=== PATIENT | male | born 1995 | race Caucasian/White ===

== ENCOUNTER 2022-01-26 19:08 | Emergency (ER) | payer OTHER ==
[~2022-01-26] VITALS: Ht 180.3 cm; Wt 68.0 kg
--- NOTE | 2022-01-26 20:35 | NUR ---
DR. POWELL AT BEDSIDE MSE IN PROGRESS.
--- NOTE | 2022-01-26 21:05 | NUR ---
LAB AT BEDSIDE.
[2022-01-26 21:07] LABS: *BLOOD, URINE NEGATIVE (NEGATIVE); *CLARITY,URINE CLEAR (CLEAR); *COLOR,URINE YELLOW (YELLOW); *KETONES,URINE 3+ (NEGATIVE); *UROBILINOGEN,URINE 0.2 E.U./dl (NORMAL); LEUKOCYTE ESTERASE ,URINE NEGATIVE (NEGATIVE); NITRITE, URINE NEGATIVE (NEGATIVE); PH,URINE 5.5 (5.0-8.0); UGLUCOSE NEGATIVE (NEGATIVE)
[2022-01-26 21:10] LABS: *BILIRUBIN,URIN 1+ (NEGATIVE)
[2022-01-26 21:18] LABS: *AMPHETAMINE, URINE NEGATIVE (NEGATIVE); *CANNABINOID, URINE POSITIVE (NEGATIVE); *COCCAINE, URINE NEGATIVE (NEGATIVE); *OPIATE, URINE NEGATIVE (NEGATIVE); *PHENCYCLIDINE SCREEN,URINE NEGATIVE (NEGATIVE)
[2022-01-26 21:31] LABS: HEMATOCRIT 44.2 % (36.7-47.1); MEAN CORPUSCULAR HEMOGLOBIN 24.2 uug (23.8-33.4); MEAN CORPUSCULAR VOLUME 72.8 fL (73.0-96.2); PLATELET COUNT (AUTO) 374 K/uL (152-348)
[2022-01-26 21:42] LABS: CARBON DIOXIDE 24 mmol/L (21-32); CHLORIDE 98 mmol/L (98-107); CREATININE 0.9 mg/dL (0.6-1.3); GLUCOSE 67 mg/dL (74-106); POTASSIUM 4.3 mmol/L (3.5-5.1); UREA NITROGEN, BLOOD 14 mg/dL (7-18)
[2022-01-26 21:44] LABS: ETHANOL < 3 MG/DL (0-0)
[2022-01-26 21:48] LABS: ALANINE AMINOTRANSFERASE 37 U/L (16-63); ALKALINE PHOSPHATASE 76 U/L (50-136); ASPARTATE AMINOTRANSFERASE 25 U/L (15-37); BILIRUBIN,DIRECT 0.2 mg/dL (0.0-0.2); CREATINE KINASE, TOTAL 530 U/L (39-308); TOTAL PROTEIN, SERUM 8.3 g/dL (6.4-8.2)
[2022-01-26 21:50] LABS: ACETAMINOPHEN < 2.0 ug/mL (10-30)
[2022-01-26 21:55] LABS: THYROID STIMULATING HORMONE 0.456 mIU/mL (0.358-3.740)
[2022-01-26 22:08] LABS: *OCCULT BLOOD STOOL NEGATIVE (NEGATIVE)
[2022-01-26 22:15] LABS: NEUTROPHILS % (MANUAL) 0 % (42-75)
[2022-01-26 22:34] LABS: BACTERIA,URINE FEW /HPF (NONE SEEN); RBC,URINE 0-3 /HPF (0-3); SQUAMOUS EPITHELIAL CELL,UR NONE SEEN /HPF (NONE SEEN); TRICHOMONAS,URINE NONE SEEN /HPF (NONE SEEN); WBC,URINE 0-3 /HPF (0-3); YEAST,URINE NONE SEEN /HPF (NONE SEEN)
--- NOTE | 2022-01-27 | NUR ---
Patient given written and verbal discharge instructions. Patient verbalizes understanding of instructions. Patient is ambulatory with steady gait. Refuses offer of jail placement. Patient given list of available shelters in surrounding area and provided opt with meal tray prior to discharge (well tolerated). Steady gait. No changes in LOC. Denies SI/HI. Denies any pain/discomfort upon discharge.
[2022-01-27 00:06] VITALS: BP 126/70
== END 2022-01-27 00:14 | disposition home or self-care (01) ==
LOC: ER 19:12
DX: K62.5 Hemorrhage of anus and rectum (principal); F23 Brief psychotic disorder; G71.00 Muscular dystrophy, unspecified; Z59.00 Homelessness unspecified; R03.0 Elevated blood-pressure reading, without diagnosis of hypertension
CPT/HCPCS: 36415; 70030-TC; 84443; 85025; 93005; A4663; G0480

== ENCOUNTER 2022-02-03 19:56 | Emergency (ER) | payer OTHER ==
[~2022-02-03] VITALS: Ht 165.1 cm; Wt 68.0 kg
--- NOTE | 2022-02-03 20:49 | NUR ---
PT PLACED IN ROOM 2A.
[2022-02-03] MEDS ORDERED: OLANZAPINE 5 MG TABLET PO ONE (21:00)
[2022-02-03] MEDS ORDERED: LORAZEPAM 0.5 MG TABLET PO ONE (21:00)
[2022-02-03] MEDS ORDERED: LORAZEPAM 0.5 MG TABLET ONE (21:01)
[2022-02-03] MEDS ORDERED: OLANZAPINE 5 MG TABLET ONE (21:01)
--- NOTE | 2022-02-03 21:02 | NUR ---
Dr canales at bedside, MSE in progress.
[2022-02-03 21:15] LABS: HEMATOCRIT 41.9 % (36.7-47.1); MEAN CORPUSCULAR VOLUME 72.9 fL (73.0-96.2); PLATELET COUNT (AUTO) 350 K/uL (152-348)
[2022-02-03 21:19] LABS: *BILIRUBIN,URIN NEGATIVE (NEGATIVE); *BLOOD, URINE NEGATIVE (NEGATIVE); *CLARITY,URINE CLEAR (CLEAR); *COLOR,URINE YELLOW (YELLOW); *KETONES,URINE NEGATIVE (NEGATIVE); *UROBILINOGEN,URINE 0.2 E.U./dl (NORMAL); LEUKOCYTE ESTERASE ,URINE NEGATIVE (NEGATIVE); NITRITE, URINE NEGATIVE (NEGATIVE); PH,URINE 6.5 (5.0-8.0); UGLUCOSE NEGATIVE (NEGATIVE)
[2022-02-03 21:25] LABS: ALANINE AMINOTRANSFERASE 31 U/L (16-63); ALKALINE PHOSPHATASE 69 U/L (50-136); ASPARTATE AMINOTRANSFERASE 21 U/L (15-37); BILIRUBIN,DIRECT 0.1 mg/dL (0.0-0.2); BILIRUBIN,TOTAL 0.4 mg/dL (0.2-1.0); CARBON DIOXIDE 32 mmol/L (21-32); CHLORIDE 102 mmol/L (98-107); CREATININE 0.6 mg/dL (0.6-1.3); GLUCOSE 94 mg/dL (74-106); POTASSIUM 3.9 mmol/L (3.5-5.1); TOTAL PROTEIN, SERUM 7.8 g/dL (6.4-8.2); UREA NITROGEN, BLOOD 9 mg/dL (7-18)
[2022-02-03 21:27] LABS: ACETAMINOPHEN < 2.0 ug/mL (10-30); ETHANOL < 3 MG/DL (0-0)
[2022-02-03 21:41] LABS: *AMPHETAMINE, URINE NEGATIVE (NEGATIVE); *CANNABINOID, URINE POSITIVE (NEGATIVE); *COCCAINE, URINE NEGATIVE (NEGATIVE); *OPIATE, URINE NEGATIVE (NEGATIVE); *PHENCYCLIDINE SCREEN,URINE NEGATIVE (NEGATIVE)
[2022-02-03 22:47] LABS: NEUTROPHILS % (MANUAL) 0 % (42-75)
--- NOTE | 2022-02-03 23:14 | NUR ---
pt is currently resting in bed after eating dinner tray.
--- NOTE | 2022-02-04 02:45 | NUR ---
[facility] [phone]. [phone].
--- NOTE | 2022-02-04 02:48 | NUR ---
Called [facility] to see if they received the intake. they stated that they have not. Will refax intake to and[facility].
--- NOTE | 2022-02-04 04:05 | NUR ---
Called [facility]. they siad they did not receive the intake i faxed. They provided a different fax number that I will fax to
--- NOTE | 2022-02-04 05:06 | NUR ---
called [facility]. they said they have not recieved the intake that I faxed. they provided another number to fax to. .
--- NOTE | 2022-02-04 05:58 | NUR ---
pt is curently sleeping in bed. Vital signs stable
--- NOTE | 2022-02-04 07:10 | NUR ---
Patient is resting comfortably in bed with eyes closed, NAD noted.
--- NOTE | 2022-02-04 08:02 | NUR ---
Recieved a call from Yusef Weston, from [facility] to go to their facility @11-12 today. Called [facility] for BLS transfer, ETA 1030.
--- NOTE | 2022-02-04 08:10 | NUR ---
PT awake A/O x4, agreed to tranfer to [facility].
--- NOTE | 2022-02-04 08:33 | NUR ---
Breakfast tray provided, pt ate w/ moderate appettite.
--- NOTE | 2022-02-04 10:34 | NUR ---
Report given to Bernabe HERNANDEZ at [facility].
--- NOTE | 2022-02-04 10:56 | NUR ---
Report gived to transfering labourers from [facility]. PT left ER via gurney, all belongings sent w/ pt.
[2022-02-04 10:58] VITALS: BP 106/85
== END 2022-02-04 10:58 ==
LOC: ER 20:00
DX: F23 Brief psychotic disorder (principal); Z59.00 Homelessness unspecified; F41.9 Anxiety disorder, unspecified; G71.00 Muscular dystrophy, unspecified; F90.9 Attention-deficit hyperactivity disorder, unspecified type; Z20.822 Contact with and (suspected) exposure to COVID-19
CPT/HCPCS: 36415; 70030-TC; 85025; A4663; G0480